=== PATIENT | female | born 1970 | race Caucasian/White ===

== ENCOUNTER 2017-06-18 06:24 | Day surgery (SDC) | payer BC ==
[~2017-06-18 06:24] MED LIST: Lactated Ringers 1,000 ML IV SCH; Sodium Chloride 0.9% 10 ML Syringe FLUSH PRN; Sodium Chloride 0.9% 2.5 ML Syringe FLUSH PRN; ceFAZolin 2 GM in Premix Bag 1 BAG IV ONE
--- NOTE | 2017-06-18 07:02 | PCM.PREANE ---
Preanesthetic Assessment - Anesthesia/Transfusion/Family Hx Anesthesia History: Prior Anesthesia Without Reaction Family History of Anesthesia Reaction: No Transfusion History: No Prior Transfusion(s) Intubation History: Unknown - Review of Systems General: No Symptoms Pulmonary: No Symptoms Cardiovascular: No Symptoms Gastrointestinal: No Symptoms Neurological: No Symptoms Other: Reports: None - Physical Assessment O2 Sat by Pulse Oximetry: 97 Respiratory Rate: 16 Vital Signs: Last Vital Signs Temp 36.7 C 06/18/17 06:46 Pulse 69 06/18/17 06:46 Resp 16 06/18/17 06:46 BP 143/93 H 06/18/17 06:46 Pulse Ox 97 06/18/17 06:46 Height: 1.7 m Weight: 116.12 kg ASA Class: 2 Mental Status: Alert & Oriented x3 Airway Class: Mallampati = 2 Dentition: Reports: Normal Dentition (retainer at the bottom) Lungs: Clear to Auscultation, Normal Respiratory Effort Cardiovascular: Regular Rate, Regular Rhythm - Lab Values: Laboratory Last Values Urine HCG, Qual NEGATIVE (NEGATIVE) 06/18/17 06:28 - Allergies Allergies/Adverse Reactions: Allergies Allergy/AdvReac Type Severity Reaction Status Date / Time Sulfa (Sulfonamide Allergy Rash Verified 09/16/15 10:19 Antibiotics) - Blood Blood Available: No - Anesthesia Plan Pre-Op Medication Ordered: None - Acknowledgements Anesthesia Type Planned: General Anesthesia Pt an Appropriate Candidate for the Planned Anesthesia: Yes Alternatives and Risks of Anesthesia Discussed w Pt/Guardian: Yes Pt/Guardian Understands and Agrees with Anesthesia Plan: Yes PreAnesthesia Questionnaire HEENT History: Reports: Allergic Rhinitis, Impaired Vision, Other (See Below) Other HEENT History: wears glasses/contacts Cardiovascular History: Reports: Arrhythmia, High Cholesterol, Hypertension Respiratory History: Reports: None Gastrointestinal History: Reports: GERD Genitourinary History: Reports: None [employer] History: Reports: , Spontaneous Other OB/BYN History: IUD in place Musculoskeletal History: Reports: None Neurological History: Reports: None Psychiatric History: Reports: None Endocrine/Metabolic History: Reports: Obesity/BMI 30+ Hematologic History: Reports: None Immunologic History: Reports: None Oncologic (Cancer) History: Reports: None Dermatologic History: Reports: None - Infectious Disease History Infectious Disease History: Reports: Chicken Pox - Past Surgical History Head Surgeries/Procedures: Reports: None Female Surgical History: Reports: Section (x4), D&C - SUBSTANCE USE Smoking Status *Q: Never Smoker Second Hand Smoke Exposure: No Recreational Drug Use History: No - HOME MEDS Home Medications: Home Meds Fluticasone Propionate [Flonase] 1 spray NASBOTH DAILY 12/24/13 [History] Hydrochlorothiazide 12.5 mg PO DAILY 06/13/17 [History] Omeprazole 40 mg PO DAILY 06/13/17 [History] atorvaSTATin Calcium [Atorvastatin Calcium] 10 mg PO DAILY 06/13/17 [History] - CURRENT (IN HOUSE) MEDS Current Meds: Current Medications Lactated Ringer's (Ringers, Lactated) 1,000 mls @ 125 mls/hr IV ASDIRECTED OTILIA Last Admin: 06/18/17 06:49 Dose: 125 mls/hr Sodium Chloride (Saline Flush) 10 ml FLUSH ASDIRECTED PRN PRN Reason: Keep Vein Open Sodium Chloride (Saline Flush) 2.5 ml FLUSH ASDIRECTED PRN PRN Reason: Keep Vein Open Discontinued Medications Cefazolin Sodium/Dextrose 2 gm (/ Premix) 50 mls @ 100 mls/hr IV ONETIME ONE Stop: 06/13/17 15:05
[2017-06-18] MEDS ORDERED: diphenhydrAMINE 50 MG/ML SDV ONE (07:10)
[2017-06-18] MEDS ORDERED: Ketorolac 30 MG/ML SDV ONE (07:10)
[2017-06-18] MEDS ORDERED: Lidocaine 2% 5 ML SDV ONE (07:10)
[2017-06-18] MEDS ORDERED: Ondansetron 4 MG/2 ML SDV ONE (07:10)
[2017-06-18] MEDS ORDERED: Propofol 200 MG/20 ML SDV ONE (07:10)
[2017-06-18] MEDS ORDERED: fentaNYL 100 MCG/2 ML SDV ONE (07:10)
[2017-06-18] MEDS ORDERED: Midazolam 1 MG/ML 2 ML SDV ONE (07:10)
[2017-06-18] MEDS ORDERED: fentaNYL 100 MCG/2 ML SDV IVPUSH PRN (07:24)
[2017-06-18] MEDS ORDERED: ceFAZolin 1 GM Vial ONE ×2 (07:31→07:41)
[2017-06-18] MEDS ORDERED: Bupivacaine 0.5% 30 ML SDV ONE (07:41)
[2017-06-18] MEDS ORDERED: Metoclopramide 10 MG/2 ML SDV ONE (08:11)
[2017-06-18] MEDS ORDERED: ePHEDrine 50 MG/ML SDV ONE (08:43)
--- NOTE | 2017-06-18 08:56 | PCM.OPNOTE ---
- General Post-Op/Procedure Note Date of Surgery/Procedure: 06/18/17 Operative Procedure(s): Umbilical hernia repair Findings: 1.2 cm defect at the umbilicus containing omentum Pre Op Diagnosis: Umbilical hernia Post-Op Diagnosis: same Anesthesia Technique: General LMA Primary Surgeon: Melinda Conner Condition: Good
[2017-06-18 10:19] VITALS: BP 139/85
--- NOTE | 2017-06-18 13:14 | OR ---
SURGEON: LAURA BARRETT MD DATE OF PROCEDURE: 06/18/2017 PREOPERATIVE DIAGNOSIS: Umbilical hernia. POSTOPERATIVE DIAGNOSIS: Umbilical hernia. PROCEDURE PERFORMED: Umbilical hernia repair. ANESTHESIA: General LMA. FLUIDS: See anesthesia record. ESTIMATED BLOOD LOSS: 5 mL. FINDINGS: 1.2 cm defect in the fascia underneath the umbilicus and hernia sac containing pre-peritoneal fat COMPLICATIONS: None. INDICATIONS: The patient is a 46-year-old female, who presents to clinic with an umbilical hernia. We discussed the repair of the abdominal wall hernias. I explained the procedure as well as expected perioperative course. We discussed the risks, including bleeding, infection, or damage to surrounding structures. The patient verbalized understanding and wishes to repair her umbilical hernia. PROCEDURE IN DETAIL: The patient was brought into the OR and placed on the operating room table in supine position. A time-out was completed verifying the patient's name, age, date of , allergies, and procedure to be performed. General LMA anesthesia was induced. The abdomen was prepped and draped in usual standard fashion. The supraumbilical fold was anesthetized with 0.5% Marcaine plain. A curvilinear incision was made along this fold using a 15 blade. Cautery was used to dissect down to the level of the hernia sac. The hernia sac was dissected free from the surrounding subcutaneous tissues. This was done using Metzenbaum scissors and gentle blunt dissection. The hernia sac was then dissected free of the overlying periumbilical skin. A rent was made in the umbilical hernia sac. The umbilical hernia sac contained pre-peritoneal fat. This was able to be reduced back into the abdomen. The hernia sac was resected and sent to pathology. The fascial defect measured 1.2 cm in size. Given its small size, a decision was made to perform a primary repair. 0 Ethibond sutures were placed in an interrupted fashion closing the defect. A 3-0 Vicryl was then used to tack the overlying periumbilical skin down to the fascia. The interrupted 3-0 was replaced in the subcutaneous fat layer and a running 4-0 Monocryl suture was used to close the skin. Steri-Strips, sterile dressings, and a cotton ball was placed over the wound. The patient tolerated the procedure well, was extubated, and taken to the PACU in stable condition. RONDA SANCHEZ /[id number] GIDEON
== END 2017-06-18 10:15 | disposition home or self-care (01) ==
LOC: MW.SDS 06:24
PROVIDERS: ATTEND Surgery
DX: K42.9 Umbilical hernia without obstruction or gangrene (principal); I10 Essential (primary) hypertension; E78.00 Pure hypercholesterolemia, unspecified; Z79.899 Other long term (current) drug therapy; Z88.2 Allergy status to sulfonamides
CPT/HCPCS: 49585; 81025; 88302; J0690; J1200; J1885; J2250; J2405; J2765; J3010; J7120; 00830; J2704

== ENCOUNTER 2017-12-18 08:36 | Emergency (ER) | payer BC ==
[2017-12-18 09:05] VITALS: BP 138/95
--- NOTE | 2017-12-18 09:12 | EDM.PDOC ---
ED HPI GENERAL MEDICAL PROBLEM - General Chief Complaint: Genitourinary Problem Stated Complaint: URINARY PAIN Time Seen by Provider: 12/18/17 09:05 - History of Present Illness INITIAL COMMENTS - FREE TEXT/NARRATIVE: HISTORY AND PHYSICAL: History of present illness: The patient is a 47-year-old female who presents with 3 days of urgency and frequency of urination and thinks she has a UTI. She has no flank pain no fevers no chills no nausea vomiting or diarrhea and no STD risks. The patient has an IUD in place as well as history of bilateral tubal ligation. She has had no hematuria or dysuria. Patient did start Azo yesterday but does not feel like she is getting much relief. She has no sensation of urinary retention. Review of systems: As per history of present illness and below otherwise all systems reviewed and negative. Past medical history: As per history of present illness and as reviewed below otherwise noncontributory. Surgical history: As per history of present illness and as reviewed below otherwise noncontributory. Social history: No reported history of drug or alcohol abuse. Family history: As per history of present illness and as reviewed below otherwise noncontributory. Physical exam: HEENT: Atraumatic, normocephalic, negative for conjunctival pallor or scleral icterus, mucous membranes moist, throat clear, neck supple, nontender, trachea midline. Lungs: Clear to auscultation, breath sounds equal bilaterally, chest nontender. Heart: S1S2, regular rate and rhythm no overt murmurs Abdomen: Soft, nondistended, nontender. NABS Negative for costovertebral tenderness. Pelvis: Deferred Genitourinary: Deferred. Rectal: Deferred. Extremities: Atraumatic, negative for cords or calf pain. Neurovascular unremarkable. Neuro: Awake, alert, oriented. Cranial nerves II through XII unremarkable. Cerebellum unremarkable. Motor and sensory unremarkable throughout. Exam nonfocal. Diagnostics: UA urine culture Therapeutics: [] Impression: UTI Definitive disposition and diagnosis as appropriate pending reevaluation and review of above. Bladder Pain Score (Numeric/FACES): 5 - Related Data Allergies Allergy/AdvReac Type Severity Reaction Status Date / Time Sulfa (Sulfonamide Allergy Rash Verified 12/18/17 09:06 Antibiotics) Home Meds: Home Meds Fluticasone Propionate [Flonase] 1 spray NASBOTH DAILY 12/24/13 [History] Hydrochlorothiazide 12.5 mg PO DAILY 06/13/17 [History] Omeprazole 40 mg PO DAILY 06/13/17 [History] atorvaSTATin Calcium [Atorvastatin Calcium] 10 mg PO DAILY 06/13/17 [History] Loratadine/Pseudoephedrine [Claritin-D 24 Hour Tablet] 1 each PO DAILY 12/18/17 [History] Past Medical History HEENT History: Reports: Allergic Rhinitis, Impaired Vision, Other (See Below) Other HEENT History: wears glasses/contacts Cardiovascular History: Reports: Arrhythmia, High Cholesterol, Hypertension Respiratory History: Reports: None Gastrointestinal History: Reports: GERD Genitourinary History: Reports: None [employer] History: Reports: , Spontaneous Other OB/BYN History: IUD in place Musculoskeletal History: Reports: None Neurological History: Reports: None Psychiatric History: Reports: None Endocrine/Metabolic History: Reports: Obesity/BMI 30+ Hematologic History: Reports: None Immunologic History: Reports: None Oncologic (Cancer) History: Reports: None Dermatologic History: Reports: None - Infectious Disease History Infectious Disease History: Reports: Chicken Pox - Past Surgical History Head Surgeries/Procedures: Reports: None Female Surgical History: Reports: Section (x4), D&C Social & Family History - Family History Family Medical History: Noncontributory ED ROS GENERAL - Review of Systems Review Of Systems: ROS reveals no pertinent complaints other than HPI. ED EXAM, GENERAL - Physical Exam Exam: See Below (See dictation) Course - Vital Signs Last Recorded V/S: Last Vital Signs Temp 36.8 C 12/18/17 09:01 Pulse 65 12/18/17 09:01 Resp 16 12/18/17 09:01 BP 138/95 H 12/18/17 09:01 Pulse Ox 96 12/18/17 09:01 - Orders/Labs/Meds Orders: Active Orders 24 hr Category Date Time Status CULTURE URINE [RM] Stat Lab 12/18/17 09:30 Ordered UA W/MICROSCOPIC [URIN] Stat Lab 12/18/17 09:30 Ordered Labs: Laboratory Tests 12/18/17 Range/Units 09:30 Urine Color YELLOW Urine Appearance CLEAR Urine pH 5.5 (5.0-8.0) Ur Specific [place] 1.015 (1.001-1.035) Urine Protein 30 (NEGATIVE) mg/dL Urine Glucose (UA) 100 H (NEGATIVE) mg/dL Urine Ketones NEGATIVE (NEGATIVE) mg/dL Urine Occult Blood MODERATE (NEGATIVE) Urine Nitrite POSITIVE H (NEGATIVE) Urine Bilirubin NEGATIVE (NEGATIVE) Urine Urobilinogen 4.0 H (<2.0) EU/dL Ur Leukocyte Esterase MODERATE (NEGATIVE) Urine RBC 3-5 (0-2/HPF) Urine WBC 15-20 (0-5/HPF) Ur Epithelial Cells RARE (NONE-FEW) Urine Bacteria FEW (NEGATIVE) Departure - Departure Time of Disposition: 10:09 Disposition: Home, Self-Care 01 Condition: Good Clinical Impression: UTI, Urinary tract infectious disease - Discharge Information Referrals: Jasen Mcmanus MD [Primary Care Provider] - Forms: ED Department Discharge Additional Instructions: The following information is given to patients seen in the emergency department who are being discharged to home. This information is to outline your options for follow-up care. We provide all patients seen in our emergency department with a follow-up referral. The need for follow-up, as well as the timing and circumstances, are variable depending upon the specifics of your emergency department visit. If you don't have a primary care physician on staff, we will provide you with a referral. We always advise you to contact your personal physician following an emergency department visit to inform them of the circumstance of the visit and for follow-up with them and/or the need for any referrals to a consulting specialist. The emergency department will also refer you to a specialist when appropriate. This referral assures that you have the opportunity for followup care with a specialist. All of these measure are taken in an effort to provide you with optimal care, which includes your followup. Under all circumstances we always encourage you to contact your private physician who remains a resource for coordinating your care. When calling for followup care, please make the office aware that this follow-up is from your recent emergency room visit. If for any reason you are refused follow-up, please contact the [facility] emergency department at and ask to speak to the emergency department charge nurse. [facility] Primary care- Internal Medicine and Family [address] [address] Push hydration and take antibiotics until they're finished. He may use the over- the-counter Azo for discomfort as well as [id number] Tylenol and ibuprofen. Push hydration. A urine culture has been sent and if there is any change in her antibiotic care he will be contacted. Return to ER as needed and as discussed: Schedule a follow-up appointment in the clinic next week for reevaluation and further care - My Orders Last 24 Hours: My Active Orders 12/18/17 09:30 CULTURE URINE [RM] Stat UA W/MICROSCOPIC [URIN] Stat - Assessment/Plan Last 24 Hours: My Active Orders 12/18/17 09:30 CULTURE URINE [RM] Stat UA W/MICROSCOPIC [URIN] Stat
== END 2017-12-18 10:20 | disposition home or self-care (01) ==
LOC: MW.ED 08:36
DX: N39.0 Urinary tract infection, site not specified (principal); I10 Essential (primary) hypertension; E66.9 Obesity, unspecified; Z88.2 Allergy status to sulfonamides; Z79.899 Other long term (current) drug therapy
CPT/HCPCS: 81001; 87086; 87088; 87186; 99283

== ENCOUNTER 2021-09-06 10:05 | Day surgery (SDC) | payer BC ==
[~2021-09-06 10:05] MED LIST changes: +Midazolam 1 MG/ML 2 ML SDV ONE; +Propofol 200 MG/20 ML SDV ONE; +Sodium Chloride 0.9% 20 ML SDV IV PRN; -ceFAZolin 2 GM in Premix Bag 1 BAG IV ONE; +fentaNYL 100 MCG/2 ML SDV ONE
[2021-09-06] MEDS ORDERED: Propofol 200 MG/20 ML SDV ONE ×4 (11:42→12:43)
[2021-09-06 13:24] VITALS: BP 135/89; PULSE 65
== END 2021-09-06 13:32 | disposition home or self-care (01) ==
LOC: MW.SDS 10:05
PROVIDERS: ATTEND Surgery
DX: D12.2 Benign neoplasm of ascending colon (principal); D12.3 Benign neoplasm of transverse colon; D12.5 Benign neoplasm of sigmoid colon; K57.30 Diverticulosis of large intestine without perforation or abscess without bleeding; I10 Essential (primary) hypertension; E78.00 Pure hypercholesterolemia, unspecified; E66.9 Obesity, unspecified; Z88.2 Allergy status to sulfonamides; Z79.899 Other long term (current) drug therapy; Z98.890 Other specified postprocedural states; Z68.38 Body mass index [BMI] 38.0-38.9, adult
CPT/HCPCS: 45380; 45385; 81025; J2250; J2704; J3010; J7120; 00811